=== PATIENT | male | born 1980 | race African-American/Black ===

== ENCOUNTER 2016-12-02 18:17 | Emergency (ER) | payer MEDICAID ==
[~2016-12-02] VITALS: Ht 182.9 cm; Wt 94.0 kg
[2016-12-02 18:20] VITALS: BP 124/77
[2016-12-02] MEDS ORDERED: LIDOCAINE 1%, 20ML ONE (18:42)
[2016-12-02] MEDS ORDERED: LIDOCAINE 1%, 20ML SQ ONE (19:00)
[2016-12-02] MEDS ORDERED: IBUPROFEN 200 MG TABLET ONE (19:12)
[2016-12-02] MEDS ORDERED: IBUPROFEN 200 MG TABLET PO ONE (19:30)
== END 2016-12-02 19:19 | disposition home or self-care (01) ==
LOC: ED 19:10
DX: L03.211 Cellulitis of face (principal); L02.01 Cutaneous abscess of face
CPT/HCPCS: 10060; 99283

== ENCOUNTER 2017-02-24 18:05 | Emergency (ER) | payer MEDICAID ==
[~2017-02-24] VITALS: Ht 182.9 cm; Wt 97.0 kg
[2017-02-24 18:09] VITALS: BP 117/73
[2017-02-24 18:55] LABS: RAPID INFLUENZA A Negative (Negative); RAPID INFLUENZA B Negative (Negative)
[2017-02-24] MEDS ORDERED: ALBUTEROL/IPRATROPIUM 2.5MG/0.5MG, 3 ML NPPB ONE (19:00)
[2017-02-24] MEDS ORDERED: ALBUTEROL/IPRATROPIUM 2.5MG/0.5MG, 3 ML ONE (19:10)
== END 2017-02-24 19:56 | disposition home or self-care (01) ==
LOC: ED 19:14
DX: J20.8 Acute bronchitis due to other specified organisms (principal); B96.89 Other specified bacterial agents as the cause of diseases classified elsewhere
CPT/HCPCS: 71046; 87400; 99285

== ENCOUNTER 2017-11-28 19:58 | Emergency (ER) | payer MEDICAID, OTHER ==
[~2017-11-28] VITALS: Ht 182.9 cm; Wt 100.0 kg
[2017-11-28 21:19] LABS: ALBUMIN 3.6 g/dL (3.4-5.0); ANION GAP 8 mmol/L (5-15); CALCIUM 8.5 mg/dL (8.5-10.1); CHLORIDE 106 mmol/L (98-107); CREATININE 1.42 mg/dL (0.7-1.3)
[2017-11-28 21:34] LABS: BASOPHILS # (AUTO) 0.07 x10^3/uL (0-0.1); BASOPHILS % (AUTO) 1 % (0-1); EOSINOPHILS # (AUTO) 0.05 x10^3/uL (0-0.4); EOSINOPHILS % (AUTO) 0 % (1-7); LYMPHOCYTES # (AUTO) 1.07 x10^3/uL (1-3.4); LYMPHOCYTES % (AUTO) 8 % (22-44); MD SCAN; MEAN CORPUSCULAR HEMOGLOBIN 28.7 pg (27.5-34.5); MEAN CORPUSCULAR HGB CONC 33.4 g/dL (33.2-36.2); MEAN CORPUSCULAR VOLUME 85.9 fL (81-97); MEAN PLATELET VOLUME 9.2 fL (7.4-10.4); MONOCYTES # (AUTO) 0.42 x10^3/uL (0.2-0.8); MONOCYTES % (AUTO) 3 % (2-9); NEUTROPHILS # (AUTO) 12.76 x10^3/uL (1.8-6.8); NEUTROPHILS % (AUTO) 89 % (42-75); PLATELET COUNT 155 x10^3/uL (130-400); RED BLOOD COUNT 5.46 x10^6/uL (4.38-5.82); RED CELL DISTRIBUTION WIDTH 12.4 % (9.4-14.8)
[2017-11-28] MEDS ORDERED: GADOBUTROL 10 MMOL/10 ML PFS ONE (22:54)
[2017-11-29 00:44] VITALS: BP 134/83
== END 2017-11-29 01:01 | disposition home or self-care (01) ==
LOC: ED 11-29 00:55
DX: T40.1X1A Poisoning by heroin, accidental (unintentional), initial encounter (principal); Y92.9 Unspecified place or not applicable; F14.129 Cocaine abuse with intoxication, unspecified
CPT/HCPCS: 36415; 70450; 70553; 80048; 82040; 85025; 93005; 99285; A9585

== ENCOUNTER 2019-04-09 20:31 | Emergency (ER) | payer MEDICAID ==
[~2019-04-09] VITALS: Ht 182.9 cm; Wt 95.9 kg
--- NOTE | 2019-04-09 20:59 | NUR ---
ASSESSMENT MADE. URINE SENT TO LAB.
[2019-04-09 21:13] LABS: AMPHETAMINE SCREEN, URINE Negative (Negative); BARBITURATE SCREEN, URINE Negative (Negative); BENZODIAZEPINE SCREEN, URINE Negative (Negative); CANNABINOID SCREEN, URINE Negative (Negative); COCAINE SCREEN, URINE Negative (Negative); METHADONE SCREEN, URINE Negative (Negative); OPIATE SCREEN, URINE Negative (Negative)
--- NOTE | 2019-04-09 21:35 | NUR ---
urine sample resulted. PA at bedside for re-eval.
--- NOTE | 2019-04-09 21:48 | NUR ---
patient discharged with instruction. verbalized understanding.
[2019-04-09 21:49] VITALS: BP 125/78
== END 2019-04-09 21:51 | disposition home or self-care (01) ==
LOC: ED 21:00
DX: Z00.00 Encounter for general adult medical examination without abnormal findings (principal)
CPT/HCPCS: 80307; 99283

== ENCOUNTER 2019-05-17 03:16 | Emergency (ER) | payer MEDICAID ==
[~2019-05-17] VITALS: Ht 182.9 cm; Wt 94.6 kg
[2019-05-17] MEDS ORDERED: ACETAMINOPHEN 325 MG TABLET ONE (03:42)
[2019-05-17] MEDS ORDERED: ONDANSETRON 2MG/ML, 2ML ONE (03:42)
--- NOTE | 2019-05-17 03:48 | NUR ---
Patient presents to ER c/o sore throat, fever, and weakness x2 days. Patient denies SOB or CP. Patient states he had the flu approx 1 month ago and feels like he never recovered. Patient is in NAD. Respirations even and unlabored.
[2019-05-17] MEDS ORDERED: KETOROLAC 30 MG/1 ML IVPush ONE (04:00)
[2019-05-17] MEDS ORDERED: ONDANSETRON 2MG/ML, 2ML IVPush ONE (04:00)
[2019-05-17] MEDS ORDERED: SODIUM CHLORIDE FLUSH 10ML SYR IVF ONE (04:00)
[2019-05-17] MEDS ORDERED: ACETAMINOPHEN 325 MG TABLET PO ONE (04:00)
[2019-05-17] MEDS ORDERED: SODIUM CHLORIDE 0.9% 1,000ML IVBOLUS ONE (04:00)
[2019-05-17 04:10] LABS: RAPID INFLUENZA A Negative (Negative); RAPID INFLUENZA B Negative (Negative)
[2019-05-17 04:12] LABS: BASOPHILS # (AUTO) 0.03 x10^3/uL (0-0.1); BASOPHILS % (AUTO) 1 % (0-1); EOSINOPHILS # (AUTO) 0.21 x10^3/uL (0-0.4); EOSINOPHILS % (AUTO) 3 % (1-7); LYMPHOCYTES # (AUTO) 2.02 x10^3/uL (1-3.4); LYMPHOCYTES % (AUTO) 31 % (22-44); MD NO; MEAN CORPUSCULAR HEMOGLOBIN 28.8 pg (27.5-34.5); MEAN CORPUSCULAR HGB CONC 33.8 g/dL (33.2-36.2); MEAN CORPUSCULAR VOLUME 85.3 fL (81-97); MEAN PLATELET VOLUME 8.8 fL (7.4-10.4); MONOCYTES # (AUTO) 0.67 x10^3/uL (0.2-0.8); MONOCYTES % (AUTO) 10 % (2-9); NEUTROPHILS # (AUTO) 3.68 x10^3/uL (1.8-6.8); NEUTROPHILS % (AUTO) 56 % (42-75); PLATELET COUNT 173 x10^3/uL (130-400); RED BLOOD COUNT 5.11 x10^6/uL (4.38-5.82); RED CELL DISTRIBUTION WIDTH 12.7 % (9.4-14.8)
[2019-05-17 04:26] LABS: ALBUMIN 3.6 g/dL (3.4-5.0); ANION GAP 4 mmol/L (5-15); CALCIUM 8.5 mg/dL (8.5-10.1); CHLORIDE 106 mmol/L (98-107)
[2019-05-17 04:30] LABS: ALANINE AMINOTRANSFERASE 298 U/L (12-78); ALKALINE PHOSPHATASE 58 U/L (45-117); BILIRUBIN,TOTAL 0.8 mg/dL (0.2-1.0); CREATININE 1.63 mg/dL (0.7-1.3); TOTAL PROTEIN 7.9 g/dL (6.4-8.2)
[2019-05-17 06:46] VITALS: BP 142/82
== END 2019-05-17 06:51 | disposition home or self-care (01) ==
LOC: ED 03:36
DX: Z03.818 Encounter for observation for suspected exposure to other biological agents ruled out (principal); B34.9 Viral infection, unspecified; B19.10 Unspecified viral hepatitis B without hepatic coma
CPT/HCPCS: 36415; 71045; 80053; 83605; 84145; 85025; 87040; 87081; 87400; 87880; 93005; 96374; 99285; J2405; J7030

== ENCOUNTER 2019-09-15 00:25 | Emergency (ER) | payer MEDICAID ==
[~2019-09-15] VITALS: Ht 182.9 cm; Wt 81.5 kg
[2019-09-15] MEDS ORDERED: KETOROLAC 30 MG/1 ML IM ONE (01:00)
[2019-09-15] MEDS ORDERED: KETOROLAC 30 MG/1 ML ONE (01:06)
[2019-09-15 04:13] VITALS: BP 106/58
== END 2019-09-15 04:28 | disposition home or self-care (01) ==
LOC: ED 01:17
DX: S39.012A Strain of muscle, fascia and tendon of lower back, initial encounter (principal); S16.1XXA Strain of muscle, fascia and tendon at neck level, initial encounter; S29.012A Strain of muscle and tendon of back wall of thorax, initial encounter; V49.88XA Car occupant (driver) (passenger) injured in other specified transport accidents, initial encounter; Y93.89 Activity, other specified; Y92.488 Other paved roadways as the place of occurrence of the external cause; Y99.8 Other external cause status
CPT/HCPCS: 72072; 72110; 72125; 96372; 99284; J1885